=== PATIENT | male | born 1965 | race Caucasian/White ===

== ENCOUNTER 2017-10-08 18:44 | Emergency (ER) | payer OTHER ==
[2017-10-08] MEDS ORDERED: Lidocaine 1% w/Epinephrine 1:100K 20 ML VIAL ONE (18:55)
[2017-10-08] MEDS ORDERED: Bacitracin Zinc 1 Packet ONE (19:18)
== END 2017-10-08 19:55 | disposition home or self-care (01) ==
LOC: ERS 18:44
DX: S51.812A Laceration without foreign body of left forearm, initial encounter (principal); I10 Essential (primary) hypertension; E78.00 Pure hypercholesterolemia, unspecified; Z79.899 Other long term (current) drug therapy; W26.0XXA Contact with knife, initial encounter
CPT/HCPCS: 12002; J2001